=== PATIENT | female | born 1955 | race Caucasian/White ===

== ENCOUNTER 2016-11-12 15:49 | Emergency (ER) | payer BC ==
[~2016-11-12] VITALS: Ht 162.6 cm; Wt 90.9 kg
[~2016-11-12 15:49] MED LIST: NORCO 325 MG-51 TAB PO; QUALAQUIN324 MG PO; [UNRECOGNIZED DRUG - OTHER] IV; [UNRECOGNIZED DRUG - REMARK]
[2016-11-12 15:53] VITALS: BP 173/78; TEMP 98.5
[2016-11-12] MEDS ORDERED: EFFEXOR XR75 MG/CAP PO (16:14)
[2016-11-12] MEDS ORDERED: XANAX 0.5MG0.5 MG PO (16:14)
[2016-11-12 17:23] VITALS: PULSE 67
== END 2016-11-12 17:24 | disposition home or self-care (01) ==
LOC: COL.ER 15:49
DX: S06.0X0A Concussion without loss of consciousness, initial encounter (principal); W19.XXXA Unspecified fall, initial encounter; R40.2412 Glasgow coma scale score 13-15, at arrival to emergency department

== ENCOUNTER → 2017-04-08 | Outpatient (CLI) | payer BC ==
[~2017-04-08] MED LIST changes: +EFFEXOR XR75 MG/CAP PO; +XANAX 0.5MG0.5 MG PO
== END ==
LOC: MC.RAD 10:20
DX: Z12.31 Encounter for screening mammogram for malignant neoplasm of breast (principal); N64.89 Other specified disorders of breast

== ENCOUNTER → 2017-04-13 | Outpatient (CLI) | payer BC | LOC: MC.RAD 13:00 | DX: Z12.31 Encounter for screening mammogram for malignant neoplasm of breast (principal) ==

== ENCOUNTER 2018-06-12 09:39 | Outpatient (RCR) | payer OTHER | END 2018-08-22 15:23 | LOC: WSOH 09:39 | DX: S29.012A Strain of muscle and tendon of back wall of thorax, initial encounter (principal); S80.02XA Contusion of left knee, initial encounter; W00.0XXA Fall on same level due to ice and snow, initial encounter; Y93.01 Activity, walking, marching and hiking; Y99.0 Civilian activity done for income or pay; F41.9 Anxiety disorder, unspecified; F32.9 Major depressive disorder, single episode, unspecified; Z87.891 Personal history of nicotine dependence ==

== ENCOUNTER → 2019-03-07 | Outpatient (CLI) | payer BC | LOC: COL.RAD 13:51 | DX: K57.30 Diverticulosis of large intestine without perforation or abscess without bleeding (principal); Z90.710 Acquired absence of both cervix and uterus | CPT/HCPCS: Q9967 ==

== ENCOUNTER → 2019-03-07 | Outpatient (CLI) | payer BC ==
[2019-03-07 10:41] LABS: BASO % 0.9 % (0.0-2.0); EOS # 0.1 (0.0-0.7); EOS % 2.4 % (0-4.0); GRAN # 2.8 (1.4-6.5); GRAN % 60.2 % (42.2-75.2); HEMATOCRIT 41.2 % (37.0-47.0); HEMOGLOBIN 13.9 g/dl (12.5-16.0); LYMPH # 1.1 (1.2-3.4); LYMPH % 23.4 % (20.0-51.0); MEAN CELL VOLUME 91 fl (80.0-100.0); MEAN CORPUSCULAR HEMOGLOBIN 31 pg (27.0-31.0); MEAN CORPUSCULAR HGB CONC 34 g/dl (33.0-37.0); MEAN PLATELET VOLUME 9.7 fl (7.4-10.4); MONO # 0.6 (0.1-0.6); MONO % 12.9 % (1.7-9.3); PLATELET COUNT 282 K/mm3 (130-400); RED BLOOD COUNT 4.52 M/mm3 (4.10-5.30); REDCELL DISTRIBUTION WIDTH-CV 12.2 % (11.5-14.5)
[2019-03-07 10:47] LABS: ALBUMIN 4.6 gm/dL (3.5-5.0); BILIRUBIN,TOTAL 0.3 mg/dL (0.0-1.0); CALCIUM 9.1 mg/dL (8.4-10.2); CREATININE, serum 0.59 (0.52-1.25); POTASSIUM 4.5 mmol/L (3.4-5.0); TOTAL PROTEIN 7.5 gm/dL (6.4-8.2)
== END ==
LOC: COL.LAB 10:20
PROVIDERS: Family Medicine
DX: R10.32 Left lower quadrant pain (principal)

== ENCOUNTER → 2019-04-10 | Outpatient (CLI) | payer BC | LOC: MC.RAD 16:15 | DX: Z12.31 Encounter for screening mammogram for malignant neoplasm of breast (principal) ==

== ENCOUNTER → 2022-01-19 | Outpatient (CLI) | payer BC | LOC: MHCPAIN 14:15 | DX: M50.30 Other cervical disc degeneration, unspecified cervical region (principal); M79.602 Pain in left arm; M54.12 Radiculopathy, cervical region | CPT/HCPCS: G0463 ==

== ENCOUNTER → 2022-02-09 | Outpatient (CLI) | payer BC | LOC: MC.RAD 14:00 | DX: Z12.31 Encounter for screening mammogram for malignant neoplasm of breast (principal); N64.89 Other specified disorders of breast ==

== ENCOUNTER 2022-05-10 14:03 | Inpatient (IN) | payer BC, MEDICARE ==
[~2022-05-10] VITALS: Ht 165.1 cm; Wt 95.5 kg
[2022-05-10 14:33] LABS: COLLECTION METHOD CATHETER
[2022-05-10 14:39] LABS: BASO % 0.3 % (0.0-2.0); EOS % 0.1 % (0.0-4.0); GRAN # 9.7 K/mm3 (1.4-6.5); GRAN % 82.6 % (42.2-75.2); HEMOGLOBIN 12.2 g/dl (12.5-16.0); LYMPH # 0.7 K/mm3 (1.2-3.4); LYMPH % 6.3 % (20.0-51.0); MEAN CELL VOLUME 90 fl (80.0-100.0); MEAN CORPUSCULAR HEMOGLOBIN 31 pg (27-31); MEAN CORPUSCULAR HGB CONC 34 g/dl (33.0-37.0); MEAN PLATELET VOLUME 9.1 fl (7.4-10.4); MONO # 1.2 K/mm3 (0.1-0.6); MONO % 10.2 % (1.7-9.3); PLATELET COUNT 263 K/mm3 (130-400); RED BLOOD COUNT 3.98 M/mm3 (4.10-5.30); REDCELL DISTRIBUTION WIDTH-CV 12.5 % (11.5-14.5)
[2022-05-10 14:40] LABS: HEMATOCRIT 35.8 % (37.0-47.0)
[2022-05-10 14:50] LABS: URINE APPEARANCE Clear (CLEAR/HAZY); URINE COLOR Yellow (YELLOW)
[2022-05-10 14:51] LABS: URINE GLUCOSE Negative (NEGATIVE); URINE KETONE 1+ (NEGATIVE); URINE PROTEIN(semi-quant) 3+ (NEGATIVE)
[2022-05-10 14:52] LABS: MUCOUS Present (NOT PRESENT); SQUAMOUS EPITHELIAL 0-2 /hpf (0-10); URINE BACTERIA Rare /hpf (NONE SEEN); URINE BLOOD Negative (NEGATIVE); URINE NITRATE Negative (NEGATIVE)
[2022-05-10 15:01] LABS: ALBUMIN 3.4 gm/dL (3.4-4.8); BILIRUBIN,TOTAL 0.6 mg/dL (0.2-1.2); C-REACTIVE PROTEIN 31.05 mg/dL (0.00-0.50); CALCIUM 9.3 mg/dL (8.4-10.2); CREATININE, serum 0.83 mg/dL (0.57-1.11); POTASSIUM 4.2 mmol/L (3.5-4.5); TOTAL PROTEIN 7.5 gm/dL (6.2-8.1)
[2022-05-10 17:52] LABS: CALCIUM 8.1 mg/dL (8.4-10.2); CREATININE, serum 0.72 mg/dL (0.57-1.11); POTASSIUM 3.8 mmol/L (3.5-4.5)
[2022-05-10] MEDS ORDERED: AMBIEN 10MG10 MG PO (18:23)
[2022-05-10] MEDS ORDERED: FLEXERIL 1010 MG/TAB PO (18:25)
[2022-05-10] MEDS ORDERED: NEURONTIN300 MG/CAP PO (18:25)
[2022-05-10 18:28] VITALS: BP 120/53; PULSE 88; TEMP 98.5
[2022-05-10 19:06] VITALS: BP 99/48; PULSE 84; TEMP 98.7
--- NOTE | 2022-05-10 19:06 | NUR ---
PT ADMITTED FROM ER, SHE IS ALERT AND ORIENT X3, RESP ARE EVEN AND EASY DIMISHED BILATERALLY IN THE LOWER BASES, PATIENT EDUCATED SULF[facility] [employer] L[employer] SYSTEM AND TO RING FOR HELP GETTING OUT OF BED.
[2022-05-10 21:05] LABS: CALCIUM 8.6 mg/dL (8.4-10.2); CREATININE, serum 0.79 mg/dL (0.57-1.11); POTASSIUM 3.7 mmol/L (3.5-4.5)
--- NOTE | 2022-05-10 22:19 | NUR ---
THIS PATIENT IS LAYING IN BED AT THIS TIME. THE PATIENT IS HAVING DIFFICULTY WORD FINDING, AND STATES "I JUST DON'T KNOW WHY I CAN'T SAY WHAT I WANT TO SAY." SHE IS ALSO HAVING LEFT SIDED WEAKNESS. CONTACTED SHIV WESLEY WHO IS ORDERING A CTA.
[2022-05-10 23:04] VITALS: BP 120/63; PULSE 87; TEMP 99.5
[2022-05-10 23:14] LABS: OSMOLALITY-URINE random 229 Osm/kg (50-1200)
--- NOTE | 2022-05-10 23:50 | NUR ---
PT OFF THE FLOOR FOR CTA OF HEAD AND NECK.
--- NOTE | 2022-05-11 00:13 | NUR ---
PT RETURNED FROM CT.
[2022-05-11 03:35] VITALS: BP 110/51; PULSE 85; TEMP 98.2
[2022-05-11 06:25] LABS: BASO % 0.2 % (0.0-2.0); EOS % 0.5 % (0.0-4.0); GRAN # 6.4 K/mm3 (1.4-6.5); GRAN % 75.9 % (42.2-75.2); HEMOGLOBIN 10.6 g/dl (12.5-16.0); LYMPH % 11.7 % (20.0-51.0); MEAN CELL VOLUME 93 fl (80.0-100.0); MEAN CORPUSCULAR HEMOGLOBIN 31 pg (27-31); MEAN CORPUSCULAR HGB CONC 33 g/dl (33.0-37.0); MEAN PLATELET VOLUME 9.3 fl (7.4-10.4); MONO % 11.3 % (1.7-9.3); PLATELET COUNT 248 K/mm3 (130-400); RED BLOOD COUNT 3.43 M/mm3 (4.10-5.30); REDCELL DISTRIBUTION WIDTH-CV 12.7 % (11.5-14.5)
[2022-05-11 06:28] LABS: HEMATOCRIT 31.9 % (37.0-47.0)
[2022-05-11 06:48] LABS: CALCIUM 8.4 mg/dL (8.4-10.2); CREATININE, serum 0.71 mg/dL (0.57-1.11); POTASSIUM 3.7 mmol/L (3.5-4.5)
[2022-05-11 07:47] VITALS: BP 107/53; PULSE 82; TEMP 99.1
[2022-05-11] MEDS ORDERED: TEGRETOL 2200 MG/TA1 PO (09:39)
[2022-05-11] MEDS ORDERED: WELLBUTRIN XL150 MG PO (09:40)
[2022-05-11] MEDS ORDERED: NEURONTIN300 MG/CAP PO (09:43)
[2022-05-11] MEDS ORDERED: ZYRTEC 10MG10 MG PO (09:48)
--- NOTE | 2022-05-11 11:42 | NUR ---
SW met with the patient to discuss discharge plan. The patient lives alone in [place]. She shares that her daughter, Palmira Spears (ph#[phone]), also lives in [place]. She reports independence with ADLs and does not have any DME. 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 The patient's PCP is Dr. Joe Wang and she receives her medications from [facility]. The patient does not have a DPOA-HC in EMR, but she states that she does have one completed and that it designates Palmira. She states that she is not and has two children: Tabby and Shanta. The patient plans to return home upon discharge. PT worked with the patient and recommend home with family assist. KENNA discussed home health services. The patient declined and states that she is still very independent. No additional needs at this time. *Discharge plan: home*
[2022-05-11 11:51] VITALS: BP 112/55; PULSE 73; TEMP 98.9
[2022-05-11 13:50] LABS: CALCIUM 8.8 mg/dL (8.4-10.2); CREATININE, serum 0.69 mg/dL (0.57-1.11)
[2022-05-11 15:36] VITALS: BP 115/56; PULSE 80; TEMP 98.7
[2022-05-11 20:23] VITALS: BP 139/64; PULSE 82; TEMP 98
[2022-05-12 05:13] VITALS: BP 132/58; PULSE 74; TEMP 98.2
[2022-05-12 06:48] LABS: BASO % 0.4 % (0.0-2.0); EOS # 0.2 K/mm3 (0.0-0.7); GRAN # 6.2 K/mm3 (1.4-6.5); GRAN % 77.7 % (42.2-75.2); HEMOGLOBIN 10.5 g/dl (12.5-16.0); LYMPH # 0.8 K/mm3 (1.2-3.4); LYMPH % 10.2 % (20.0-51.0); MEAN CELL VOLUME 89 fl (80.0-100.0); MEAN CORPUSCULAR HEMOGLOBIN 31 pg (27-31); MEAN CORPUSCULAR HGB CONC 35 g/dl (33.0-37.0); MEAN PLATELET VOLUME 8.7 fl (7.4-10.4); MONO # 0.7 K/mm3 (0.1-0.6); MONO % 9.2 % (1.7-9.3); PLATELET COUNT 252 K/mm3 (130-400); RED BLOOD COUNT 3.41 M/mm3 (4.10-5.30); REDCELL DISTRIBUTION WIDTH-CV 12.3 % (11.5-14.5)
[2022-05-12 07:02] LABS: HEMATOCRIT 30.3 % (37.0-47.0)
[2022-05-12 07:07] LABS: CALCIUM 8.6 mg/dL (8.4-10.2); CREATININE, serum 0.61 mg/dL (0.57-1.11); POTASSIUM 3.7 mmol/L (3.5-4.5)
[2022-05-12 08:10] VITALS: BP 132/39; PULSE 77; TEMP 98
[2022-05-12] MEDS ORDERED: DOXYCYCLINE HY100 MG PO (09:27)
[2022-05-12] MEDS ORDERED: PROTONIX 40MG T40 MG PO (09:28)
== END 2022-05-12 11:21 | disposition home or self-care (01) | DRG 871 ==
LOC: COL.ER 14:03 → MEDICAL 15:47
PROVIDERS: Emergency Medicine; Hospitalist; Physician Assistant; ADMIT Internal Medicine
DX: A41.9 Sepsis, unspecified organism (principal); J18.9 Pneumonia, unspecified organism; E87.1 Hypo-osmolality and hyponatremia; G89.29 Other chronic pain; M25.562 Pain in left knee; M25.561 Pain in right knee; F32.A Depression, unspecified; J45.909 Unspecified asthma, uncomplicated; F10.90 Alcohol use, unspecified, uncomplicated; M54.2 Cervicalgia; M54.9 Dorsalgia, unspecified; R29.6 Repeated falls; Z20.822 Contact with and (suspected) exposure to COVID-19; G47.00 Insomnia, unspecified; F41.9 Anxiety disorder, unspecified; Z90.710 Acquired absence of both cervix and uterus; Z88.1 Allergy status to other antibiotic agents; Z91.048 Other nonmedicinal substance allergy status; Z23 Encounter for immunization
CPT/HCPCS: A9284; J0696; J7030; Q9967

== ENCOUNTER → 2023-04-25 | Outpatient (CLI) | payer BC ==
[~2023-04-25] MED LIST changes: +AMBIEN 10MG10 MG PO; +DOXYCYCLINE HY100 MG PO; +FLEXERIL 1010 MG/TAB PO; +NEURONTIN300 MG/CAP PO; +PROTONIX 40MG T40 MG PO; +TEGRETOL 2200 MG/TA1 PO; +WELLBUTRIN XL150 MG PO; +ZYRTEC 10MG10 MG PO
== END ==
LOC: MHCPAIN 11:26
DX: M50.30 Other cervical disc degeneration, unspecified cervical region (principal); M54.2 Cervicalgia; M54.6 Pain in thoracic spine; M79.2 Neuralgia and neuritis, unspecified
CPT/HCPCS: G0463

== ENCOUNTER → 2023-06-13 | Outpatient (CLI) | payer BC ==
[~2023-06-13] MED LIST changes: +Iohexol 300 - 10 ML VIAL ONE; +Lidocaine PF 2% (20 MG/ML) 2 ML VIAL ONE
== END ==
LOC: MHCPAIN 12:06
DX: M54.12 Radiculopathy, cervical region (principal)
CPT/HCPCS: J1100; Q9967

== ENCOUNTER → 2023-06-29 | Outpatient (CLI) | payer BC ==
[~2023-06-29] MED LIST changes: -Iohexol 300 - 10 ML VIAL ONE; -Lidocaine PF 2% (20 MG/ML) 2 ML VIAL ONE
== END ==
LOC: MHCPAIN 09:04
DX: M47.812 Spondylosis without myelopathy or radiculopathy, cervical region (principal); M79.2 Neuralgia and neuritis, unspecified
CPT/HCPCS: G0463

== ENCOUNTER → 2023-10-11 | Outpatient (CLI) | payer BC | LOC: MHCPAIN 13:33 | DX: M50.30 Other cervical disc degeneration, unspecified cervical region (principal); M54.32 Sciatica, left side; M54.6 Pain in thoracic spine | CPT/HCPCS: G0463 ==

== ENCOUNTER → 2023-11-18 | Outpatient (CLI) | payer BC | LOC: MC.RAD 13:15 | DX: Z12.31 Encounter for screening mammogram for malignant neoplasm of breast (principal) ==

== ENCOUNTER → 2024-01-02 | Outpatient (CLI) | payer BC | LOC: MHCPAIN 11:34 | DX: M54.6 Pain in thoracic spine (principal); M79.2 Neuralgia and neuritis, unspecified; M54.2 Cervicalgia | CPT/HCPCS: G0463 ==

== ENCOUNTER → 2024-01-19 | Outpatient (CLI) | payer BC ==
[~2024-01-19] MED LIST changes: +Atropine 1 MG/10 ML SYRINGE IV ONE; +Glycopyrrolate 0.2 MG/ML 1 ML VIAL ONE; +Iohexol 300 - 10 ML VIAL ONE; +Lidocaine PF 2% (20 MG/ML) 2 ML VIAL ONE; +ePHEDrine 50 MG/10 ML VIAL IV ONE
== END ==
LOC: MHCPAIN 10:08
DX: M54.12 Radiculopathy, cervical region (principal)
CPT/HCPCS: J0461; J1100; Q9967